=== PATIENT | female | born 1995 | race Hispanic/Latino ===

== ENCOUNTER → 2017-01-25 | Outpatient (CLI) | payer SELFPAY | LOC: LAB 11:15 | PROVIDERS: ATTEND Family Medicine | DX: O99.810 Abnormal glucose complicating pregnancy (principal); Z3A.00 Weeks of gestation of pregnancy not specified | CPT/HCPCS: 36415; 82951; 82952; 82962 ==

== ENCOUNTER → 2017-02-15 | Outpatient (CLI) | payer OTHER ==
[~2017-02-15] MED LIST: FERR-74 PO; HYDR-3812 PO; IBUP-1773 PO; PREN1TAB86 PO
--- NOTE | 2017-02-15 16:13 | Diagnostic Imaging Report ---
INDICATION: survey. TECHNIQUE: Multiple real-time grayscale images were obtained over the gravid uterus. COMPARISON: There are no prior studies available for comparison. FINDINGS: There is single live fetus in breech presentation. heart motion was noted and a rate of 135 BPM was recorded. There were no abnormalities identified but the spine and cord insertion were not well imaged. A short-term (2-4 week) followup exam should be considered for further evaluation. The placenta is fundal and there is no previa. The amniotic fluid index is 8.5 cm (normal 8 to 22 cm). The growth parameters average 34 weeks 1 day gestation +/-3 weeks. The cervix was identified and measures 4.7 cm in length. IMPRESSION: 1. There is a single live fetus at approximately 34 weeks 1 day gestation +/-3 weeks. The EDC is March 28, 2017. 2. There were no abnormalities identified but the spine and cord insertion were not optimally imaged. Considerations as above. 3. The amniotic fluid index is at the low end of normal. Biometrical measurements are as follows: Biparietal 8.52 cm, age 34 weeks 3 days. Head circumference 30.21 cm, age 33 weeks 4 days. Abdominal circumference 31.01 cm, age 35 weeks 0 days. Femur length 6.41 cm, age 33 weeks 1 days. Sonographic estimate age: 34 weeks 1 days. Sonographic estimated date of delivery: 03/28/2017. Estimated Weight: 2382 gm (+/- 348 gm). LMP percentile: N/A%. heart rate: 135 beats per minute. number: 1 of 1. Dictated by: Dictated on workstation # [id number]
== END ==
LOC: RAD 10:22
PROVIDERS: ATTEND Family Medicine
DX: Z36 Encounter for antenatal screening of mother (principal); Z3A.34 34 weeks gestation of pregnancy
CPT/HCPCS: 76805

== ENCOUNTER → 2017-03-22 | Outpatient (CLI) | payer OTHER ==
[~2017-03-22] MED LIST changes: -FERR-74 PO; -HYDR-3812 PO; -IBUP-1773 PO
--- NOTE | 2017-03-22 14:08 | Diagnostic Imaging Report ---
INDICATION: position. TECHNIQUE: Multiple real-time grayscale images were obtained over the gravid uterus. COMPARISON: 02/15/2017. FINDINGS: heart rate is 142 beats per minute. position is breech. The placenta is fundal. No placenta previa. There is oligohydramnios with KIRBY of 4.9. This compares to 8.5 on 02/15/2017. Biometrical measurements are as follows: Biparietal 9.04 cm, age 36 weeks 5 days, at the 19th percentile. Head circumference 33.27 cm, age 38 weeks 0 days, at 15th percentile. Abdominal circumference 35.32 cm, age 39 weeks 2 days, at 75th percentile. Femur length 6.94 cm, age 35 weeks 5 days, at less than 2nd percentile. Sonographic estimate age: 37 weeks 3 days. Sonographic estimated date of delivery: 04-09-17. Estimated Weight: 3359 gm (+/- 491 gm). LMP percentile: 41%. heart rate: 142 beats per minute. number: 1 of 1. IMPRESSION: Live intrauterine in breech position. Oligohydramnios. Dictated by: Dictated on workstation # [id number]
== END ==
LOC: RAD 12:25
PROVIDERS: ATTEND Family Medicine
DX: Z36.87 Encounter for antenatal screening for uncertain dates (principal); Z3A.37 37 weeks gestation of pregnancy
CPT/HCPCS: 76816

== ENCOUNTER 2017-03-24 11:50 | Inpatient (IN) | payer OTHER ==
[~2017-03-24] VITALS: Ht 152.4 cm; Wt 63.5 kg
[2017-03-24] MEDS ORDERED: D5 LR IV SOLUTION 1,000 ML IV SCH (12:13)
[2017-03-24] MEDS ORDERED: FAMOTIDINE 20MG/2ML IV (PEPCID) IV ONE (12:15)
[2017-03-24] MEDS ORDERED: METOCLOPRAMIDE INJ 10 MG/2 ML (REGLAN) IV ONE (12:15)
[2017-03-24] MEDS ORDERED: CITRIC ACID/SOB CIT (BICITRA) 30 ML UDC PO ONE (12:15)
--- NOTE | 2017-03-24 12:31 | History & Physical-OB ---
OB - Chief Complaint & HPI Date/Time Date of Admission: Date of Admission: Mar 24, 2017 at 11:50 Time Seen by Provider: 12:45 Chief Complaint/History OB-Reason for Admission/Chief: Section Hx : 2 Hx Para: 1 Gestational Age in Weeks: 39 Gestational Age in Days: 4 Indication for : malpresentation, other (oligohydramnios) History of Labs O +/- Other Constuled by Dr. Stevenson due to breech presentation. at 39 4/7 weeks by LMP. Sent for sono at 34 weeks due to decreased movement. Breech at that time with KIRBY 8. Sent again on 03/22/17 as could not determine presenting part and breech with KIRBY of 4. Attempted to contact patient but unable to inform her until this am. She has now arrived in labor and delivery for primary section. Unable to offer version due to KIRBY. Late care at 28 weeks. + Chlamydia and trichomonos and treated. Allergies and Home Medications Allergies Coded Allergies: No Known Drug Allergies (Unverified , 03/24/17) OB - History Hx of Present Care: Yes (late) Ultrasounds: Abnormal US findings (see above) Obstetrical Complications: Other (oligohydramnios) Medical Complications: Genitourinary (chlamydia and trichomonas) Information Induced Hypertension: No Maternal Gestational Diabetes: No (had abnormal 1 hour but normal 3 hour) Hemorrhage: No Obstetrical History Hx : 2 Hx Para: 1 Hx # Term Pregnancies: 1 Hx Termination: No Patient Past Medical History NC Social History/Family History HIV/AIDS: No Recent Infectious Disease Expo: No Sexually Transmitted Disease: Yes (chlamydia and trichomonas this ) Alcohol Use: Denies Use Recreational Drug Use: No Smoking Cessation: Never smoker Immunizations Rubella: immune RPR/VDRL: Negative GBS Status: Negative HBsAG: Negative OB - Admission Exam Physical Exam Vitals: see RN note Heart: Rhythm Normal Lungs: Clear, Equal Abdomen: Gravid Extremities: Normal Reflexes: Normal Cervical Dilatation: 3cm (per Dr. Stevenson) Membranes: Intact Heart Rate: 140's Accelerations: Accelerations Present Decelerations: No Decelerations Short Term Variability: Present Greenskeeper Variability: Average (6-25) Contractions on Admission: >10 Minutes Apart Labs Laboratory Tests Test 03/24/17 12:28 03/24/17 12:45 Range/Units White Blood Count 7.4 4.3-11.0 10^3/uL Red Blood Count 4.05 L 4.35-5.85 10^6/uL Hemoglobin 9.0 L 11.5-16.0 G/DL Hematocrit 30 L 35-52 % Mean Corpuscular Volume 74 L 80-99 FL Mean Corpuscular Hemoglobin 22 L 25-34 PG Mean Corpuscular Hemoglobin Concent 30 L 32-36 G/DL Red Cell Distribution Width 17.5 H 10.0-14.5 % Platelet Count 314 130-400 10^3/uL Mean Platelet Volume 10.6 H 7.4-10.4 FL Neutrophils (%) (Auto) 68 42-75 % Lymphocytes (%) (Auto) 26 12-44 % Monocytes (%) (Auto) 6 0-12 % Eosinophils (%) (Auto) 0 0-10 % Basophils (%) (Auto) 0 0-10 % Neutrophils # (Auto) 5.0 1.8-7.8 X 10^3 Lymphocytes # (Auto) 1.9 1.0-4.0 X 10^3 Monocytes # (Auto) 0.5 0.0-1.0 X 10^3 Eosinophils # (Auto) 0.0 0.0-0.3 10^3/uL Basophils # (Auto) 0.0 0.0-0.1 10^3/uL OB - Assessment/Plan/Diagnosis Assessment Assessment: section, other (Breech presentation, oligyhydramnios) Plan Other Plan status is reassuring though she has had 1 variable deceleration Plan to proceed with primary section today. also antepartum anemia (Hgb 9). T&S. do not anticipate excessive blood loss but will prepare for transfusion as necessary Ancef 1 gram and Zithromax 500 mg given preop( due to history of chlamydia this ) risks bleeding, infection, injury to bowel, bladder and ureter explained and consent was obtained. Dariana _ STEVE Brandt DO Mar 24, 2017 12:31
[2017-03-24 12:41] LABS: BASOPHILS % (AUTO) 0 % (0-10); EOSINOPHILS % (AUTO) 0 % (0-10); LYMPHOCYTES # (AUTO) 1.9 X 10^3 (1.0-4.0); LYMPHOCYTES % (AUTO) 26 % (12-44); MEAN CORPUSCULAR HEMOGLOBIN 22 PG (25-34); MEAN CORPUSCULAR HGB CONC 30 G/DL (32-36); MEAN CORPUSCULAR VOLUME 74 FL (80-99); MEAN PLATELET VOLUME 10.6 FL (7.4-10.4); MONOCYTES # (AUTO) 0.5 X 10^3 (0.0-1.0); MONOCYTES % (AUTO) 6 % (0-12); NEUTROPHILS % (AUTO) 68 % (42-75); PLATELET COUNT 314 10^3/uL (130-400); RED BLOOD COUNT 4.05 10^6/uL (4.35-5.85); RED CELL DISTRIBUTION WIDTH 17.5 % (10.0-14.5); WHITE BLOOD COUNT 7.4 10^3/uL (4.3-11.0)
[2017-03-24] MEDS ORDERED: AZITHROMYCIN 500 MG (ZITHROMAX) VIAL ONE (12:54)
[2017-03-24] MEDS ORDERED: NS (IVPB) 250 ML ONE (12:55)
[2017-03-24] MEDS ORDERED: fentaNYL INJECTION 100 MCG/2 ML AMP ONE (12:56)
[2017-03-24] MEDS: LACTATED RINGERS 1,000 ML IV PRN ×2 (12:56→13:25)
[2017-03-24] MEDS ORDERED: OXYTOCIN/NORMAL SALINE 1,000 ML IV ONE (12:56)
[2017-03-24] MEDS ORDERED: AZITHROMYCIN INJECTION 500 MG in NS (IVPB) 250 ML IV ONE (13:00)
[2017-03-24] MEDS ORDERED: ceFAZolin INJECTION 1,000 MG in NS (IVPB) 50 ML IV ONE (13:00)
[2017-03-24 13:14] LABS: BILIRUBIN,URINE NEGATIVE (NEGATIVE); KETONES,URINE NEGATIVE (NEGATIVE); LEUKOCYTE ESTERASE ,URINE 2+ (NEGATIVE); NITRITE,URINE NEGATIVE (NEGATIVE); PH,URINE 7 (5-9); PROTEIN,URINE NEGATIVE (NEGATIVE); UROBILINOGEN,URINE NORMAL (NORMAL)
[2017-03-24] MEDS ORDERED: PREN1TAB86 PO (13:23)
[2017-03-24 13:27] LABS: WBC,URINE 25-50 /HPF
[2017-03-24] MEDS ORDERED: PHENYLEPHRINE 100 MCG/ML 10 ML (ANESTHESIA) SYR ONE (14:14)
--- NOTE | 2017-03-24 14:22 | Cesarean Section Operative ---
Procedure Procedure Note Pre-operative Diagnosis: Eliane Cortes is a (21 /Para 2 / 1, Gestational Age (wks)39 with [] Post-operative Diagnosis: same [] Procedure: [] low transverse section Physician: STEVE SALES Paralegals: [] Estimated blood loss: [] mL Disposition: [] Findings: Viable [] , Apgars [], weight [], intact placenta, 3vc, normal appearing uterus, tubes, and ovaries. Indications:Eliane Cortes is bryan (21 /Para 2 / 1,Gestational Age ( wks)39 presenting for []. Procedure Details: The patient was seen in pre-op and the procedure was discussed with the patient in full, including the risks, benefits, and alternatives. All questions were answered. The patient was taken to the operating room and a time out was performed, verifying patient and procedure. After spinal anesthesia was placed by our anesthesia colleagues, the patient was placed in the dorsal supine with leftward tilt for uterine displacement.~ Her abdomen was then prepped and draped in the typical sterile fashion. A Pfannenstiel skin incision was made using a scalpel and carried down through the underlying fascia. The fascia was incised in the midline and tented up using Michael clamps. On both the inferior and superior fascia side the rectus muscle was dissected off bluntly and sharply using Carmen scissors. The peritoneum was identified and entered bluntly in the midline. This was then stretched laterally using manual strength. After entering the abdominal cavity and confirming lack of intraperitoneal adhesions, a large Alphonse retractor was placed and the lower uterine segment was visualized. A bladder flap was created with the use of Metzenbaum scissors.~ A scalpel was utilized to make a low transverse uterine incision. Amniotomy was performed with an Allis clamp with return of clear fluid. The infant's head was grasped and brought to the level of the incision. Fundal pressure was applied and was delivered without difficulty. Mouth and nares were suctioned with bulb suction. After the umbilical cord was clamped and cut, the was handed off to the pediatric staff. A sample of cord blood was then obtained. The placenta was delivered intact via uterine massage. The uterus was exteriorized and cleared of all clots and debris. The uterine incision was closed using 0 Vicryl in a running locked fashion. A second imbricated layer was placed using 0 Vicryl in a running fashion as well. The uterus was flexed forward and the posterior rectouterine space was inspected and cleared of all clots and debris. Again the hysterotomy site was examined and hemostasis was observed. The bilateral tubes and ovaries appeared normal. The uterus was placed back into the abdominal cavity and abdominal gutters were cleared of all clots and debris. A final check of the uterine incision showed it to be hemostatic. The peritoneum was closed using 3-0 Vicryl in a running fashion. The fascia was closed with 0 Vicryl in a running fashion. The subcutaneous space was hemostatic, and irrigated. The subcutaneous space was closed with 3-0 Vicryl in several single interrupted stitches. The skin was then closed using 4- 0 Monocryl in a running subcuticular fashion. The skin edges were reapproximated together and were hemostatic. A pressure dressing was applied. All sponge, lap and needle counts were correct at the end of the procedure per nursing. Vitals - Labs Vital Signs - I&O I & O 03/25/17 07:00 Intake Total 1050 ml Balance 1050 ml Labs Laboratory Tests 03/24/17 12:28: White Blood Count 7.4, Red Blood Count 4.05L, Hemoglobin 9.0L, Hematocrit 30L, Mean Corpuscular Volume 74L, Mean Corpuscular Hemoglobin 22L, Mean Corpuscular Hemoglobin Concent 30L, Red Cell Distribution Width 17.5H, Platelet Count 314, Mean Platelet Volume 10.6H, Neutrophils (%) (Auto) 68, Lymphocytes (%) (Auto) 26 , Monocytes (%) (Auto) 6, Eosinophils (%) (Auto) 0, Basophils (%) (Auto) 0, Neutrophils # (Auto) 5.0, Lymphocytes # (Auto) 1.9, Monocytes # (Auto) 0.5, Eosinophils # (Auto) 0.0, Basophils # (Auto) 0.0 03/24/17 12:45: Urine Color YELLOW, Urine Clarity SLIGHTLY CLOUDY, Urine pH 7, Urine Specific [place] 1.010L, Urine Protein NEGATIVE, Urine Glucose (UA) NEGATIVE, Urine Ketones NEGATIVE, Urine Nitrite NEGATIVE, Urine Bilirubin NEGATIVE, Urine Urobilinogen NORMAL, Urine Leukocyte Esterase 2+H, Urine RBC (Auto) NEGATIVE, Urine RBC NONE, Urine WBC 25-50H, Urine Squamous Epithelial Cells 10-25H, Urine Crystals NONE, Urine Bacteria TRACE, Urine Casts NONE, Urine Mucus SMALLH, Urine Culture Indicated YES STEVE SALES DO Mar 24, 2017 14:22
[2017-03-24 17:35] VITALS: BP 118/78
[2017-03-24] MEDS ORDERED: OXYTOCIN/NORMAL SALINE 500 ML IV SCH (19:25)
[2017-03-24] MEDS ORDERED: TETANUS,DIPTH,PERTUSS P/F (BOOSTRIX) 0.5 ML VIAL IM SCH (19:30)
[2017-03-24] MEDS ORDERED: MEASLES,MUMPS,RUBELLA 1 EA INJ SC SCH (19:30)
[2017-03-24] MEDS ORDERED: HYDROmorphone (DILAUDID) 2 MG/ML VIAL IVP PRN (19:30)
[2017-03-24] MEDS ORDERED: HYDROcodone/APAP 5 MG/325 MG (LORTAB) TAB PO PRN (19:30)
[2017-03-24 21:23] VITALS: BP 121/67
[2017-03-24] MEDS: DOCUSATE SODIUM 100 MG (COLACE) CAP PO SCH (21:23)
[2017-03-24] MEDS: KETOROLAC 30 MG/ML VIAL IVP SCH (21:23)
[2017-03-24] MEDS ORDERED: CATHETER FLUSH 10 ML SYR IV SCH (22:00)
[2017-03-25 00:30] VITALS: BP 98/57
[2017-03-25 05:10] VITALS: BP 102/59
[2017-03-25 06:34] LABS: BASOPHILS % (AUTO) 0 % (0-10); EOSINOPHILS % (AUTO) 0 % (0-10); LYMPHOCYTES # (AUTO) 2.2 X 10^3 (1.0-4.0); LYMPHOCYTES % (AUTO) 20 % (12-44); MEAN CORPUSCULAR HEMOGLOBIN 22 PG (25-34); MEAN CORPUSCULAR HGB CONC 30 G/DL (32-36); MEAN CORPUSCULAR VOLUME 74 FL (80-99); MEAN PLATELET VOLUME 9.9 FL (7.4-10.4); MONOCYTES # (AUTO) 0.8 X 10^3 (0.0-1.0); MONOCYTES % (AUTO) 7 % (0-12); NEUTROPHILS # (AUTO) 8.1 X 10^3 (1.8-7.8); NEUTROPHILS % (AUTO) 73 % (42-75); PLATELET COUNT 246 10^3/uL (130-400); RED BLOOD COUNT 3.16 10^6/uL (4.35-5.85); RED CELL DISTRIBUTION WIDTH 17.2 % (10.0-14.5); WHITE BLOOD COUNT 11.1 10^3/uL (4.3-11.0)
[2017-03-25 08:10] VITALS: BP 105/60
[2017-03-25] MEDS: DOCUSATE SODIUM 100 MG (COLACE) CAP PO SCH ×2 (08:37→22:38)
[2017-03-25] MEDS: KETOROLAC 30 MG/ML VIAL IVP SCH ×2 (08:38→19:39)
[2017-03-25 12:00] VITALS: BP 100/62
--- NOTE | 2017-03-25 16:30 | Anesthesia-Regional Post-Op ---
Regional Patient Condition Mental Status: Alert, Oriented x3 Circulation: Same as Pre-Op Headache: Absent Sensation: Full Recovery Motor Block: Absent Post Op Complications Complications None Follow Up Care/Instructions Patient Instructions None needed. Anesthesia/Patient Condition Patient is doing well, no complaints, stable vital signs, no apparent adverse anesthesia problems. No complications reported per nursing. ANJALI GARCIA CRNA Mar 25, 2017 16:30
--- NOTE | 2017-03-25 16:35 | Postpartum Progress Note ---
Post Op Post-operative Day #1 s/p PLTCS, Breech/oligohydramnios Subjective: Patient is without complaints. Ambulating, voiding after mata removed. Tolerating a regular diet without nausea or vomiting. Normal lochia. Pain is well controlled with oral pain medications. Passing flatus. Objective: Vital Sign - Last 12Hours 03/25/17 03/25/17 03/25/17 05:10 08:10 12:00 Temp 98.9 99.1 99.1 Pulse 77 82 91 Resp 18 18 18 B/P (MAP) 102/59 105/60 100/62 Pulse Ox 98 97 98 O2 Delivery Room Air Room Air Room Air Laboratory Tests Test 03/25/17 06:25 Range/Units White Blood Count 11.1 H 4.3-11.0 10^3/uL Red Blood Count 3.16 L 4.35-5.85 10^6/uL Hemoglobin 7.0 L 11.5-16.0 G/DL Hematocrit 24 L 35-52 % Mean Corpuscular Volume 74 L 80-99 FL Mean Corpuscular Hemoglobin 22 L 25-34 PG Mean Corpuscular Hemoglobin Concent 30 L 32-36 G/DL Red Cell Distribution Width 17.2 H 10.0-14.5 % Platelet Count 246 130-400 10^3/uL Mean Platelet Volume 9.9 7.4-10.4 FL Neutrophils (%) (Auto) 73 42-75 % Lymphocytes (%) (Auto) 20 12-44 % Monocytes (%) (Auto) 7 0-12 % Eosinophils (%) (Auto) 0 0-10 % Basophils (%) (Auto) 0 0-10 % Neutrophils # (Auto) 8.1 H 1.8-7.8 X 10^3 Lymphocytes # (Auto) 2.2 1.0-4.0 X 10^3 Monocytes # (Auto) 0.8 0.0-1.0 X 10^3 Eosinophils # (Auto) 0.0 0.0-0.3 10^3/uL Basophils # (Auto) 0.0 0.0-0.1 10^3/uL Intake and Output 03/25/17 23:59 Intake Total 800 ml Output Total 1100 ml Balance -300 ml Intake Oral 800 ml Output Urine Total 1100 ml Physical Exam: General - Alert and oriented, no apparent distress Abdomen - Soft, appropriately tender to palpation, non-distended, fundus firm at umbilicus Incision - clean, dry and intact; no erythema or induration, no drainage Extremities - no edema, negative Jonathan's bilaterally Assessment: 1. post-operative day # 1, status post pLTCS. Recovering well, hemodynamically stable 2. Acute blood loss anemia, antepartum iron deficiency anemia Plan: Routine post-operative care. Encourage breast feeding. Encourage ambulation. VTE prophylaxis: SCDs. Ferrous sulfate supplementation. Plan for discharge Vitals - Labs Vital Signs - I&O Vital Signs Date Time Temp Pulse Resp B/P (MAP) Pulse Ox O2 Delivery O2 Flow Rate FiO2 03/25/17 12:00 99.1 91 18 100/62 98 Room Air 03/25/17 08:10 99.1 82 18 105/60 97 Room Air 03/25/17 05:10 98.9 77 18 102/59 98 Room Air 03/25/17 00:30 98.9 74 18 98/57 98 Room Air 03/24/17 21:23 99.8 81 20 121/67 97 Room Air 03/24/17 17:35 98.6 99 20 118/78 Room Air Labs Laboratory Tests 03/25/17 06:25: White Blood Count 11.1H, Red Blood Count 3.16L, Hemoglobin 7.0L, Hematocrit 24L , Mean Corpuscular Volume 74L, Mean Corpuscular Hemoglobin 22L, Mean Corpuscular Hemoglobin Concent 30L, Red Cell Distribution Width 17.2H, Platelet Count 246, Mean Platelet Volume 9.9, Neutrophils (%) (Auto) 73, Lymphocytes (%) (Auto) 20, Monocytes (%) (Auto) 7, Eosinophils (%) (Auto) 0, Basophils (%) (Auto ) 0, Neutrophils # (Auto) 8.1H, Lymphocytes # (Auto) 2.2, Monocytes # (Auto) 0.8 , Eosinophils # (Auto) 0.0, Basophils # (Auto) 0.0 Microbiology 03/24/17 Urine Culture - Preliminary, Resulted NO GROWTH STEVE SALES DO Mar 25, 2017 16:35
[2017-03-25 16:50] VITALS: BP 110/73
[2017-03-25] MEDS: IBUPROFEN 600 MG (MOTRIN) TAB PO SCH ×2 (17:33→22:38)
[2017-03-25] MEDS ORDERED: FERROUS SULF 325 MG (IRON) TAB PO ONE (22:29)
[2017-03-25 22:38] VITALS: BP 109/57
[2017-03-25] MEDS: FERROUS SULF 325 MG (IRON) TAB PO SCH (22:39)
[2017-03-26 04:55] VITALS: BP 102/56
[2017-03-26] MEDS: IBUPROFEN 600 MG (MOTRIN) TAB PO SCH ×3 (04:55→14:49)
[2017-03-26 09:40] VITALS: BP 105/63
[2017-03-26] MEDS: FERROUS SULF 325 MG (IRON) TAB PO SCH (09:40)
[2017-03-26] MEDS: DOCUSATE SODIUM 100 MG (COLACE) CAP PO SCH (09:59)
--- NOTE | 2017-03-26 13:12 | Progress Note-Standard ---
Standard Progress Note Progress Notes/Assess & Plan Date Seen by Provider: Mar 26, 2017 Time Seen by Provider: 12:15 Progress/Assessment & Plan Vital Sign - Last 12Hours 03/26/17 03/26/17 04:55 09:40 Temp 96.7 97.4 Pulse 68 77 Resp 18 20 B/P (MAP) 102/56 105/63 Pulse Ox 99 O2 Delivery Room Air Room Air STEVE SALES DO Mar 26, 2017 13:12
--- NOTE | 2017-03-26 13:13 | Discharge Summary ---
Diagnosis/Chief Complaint Date of Admission Mar 24, 2017 at 11:50 Date of Discharge 03/26/17 Discharge Date: Mar 26, 2017 Discharge Summary Hospital Course Labs Laboratory Tests 03/24/17 12:28: Red Blood Count 4.05L, Hemoglobin 9.0L, Hematocrit 30L, Mean Corpuscular Volume 74L, Mean Corpuscular Hemoglobin 22L, Mean Corpuscular Hemoglobin Concent 30L, Red Cell Distribution Width 17.5H, Mean Platelet Volume 10.6H 03/24/17 12:45: Urine Specific [place] 1.010L, Urine Leukocyte Esterase 2+H, Urine WBC 25-50H, Urine Squamous Epithelial Cells 10-25H, Urine Mucus SMALLH 03/25/17 06:25: Red Blood Count 3.16L, Hemoglobin 7.0L, Hematocrit 24L, Mean Corpuscular Volume 74L, Mean Corpuscular Hemoglobin 22L, Mean Corpuscular Hemoglobin Concent 30L, Red Cell Distribution Width 17.2H, White Blood Count 11.1H, Neutrophils # (Auto ) 8.1H Procedures None. Discharge Physical Examination Allergies: Coded Allergies: No Known Drug Allergies (Unverified , 03/24/17) Vitals & I&Os Vital Signs Date Time Temp Pulse Resp B/P (MAP) Pulse Ox O2 Delivery O2 Flow Rate FiO2 03/26/17 09:40 97.4 77 20 105/63 Room Air 03/26/17 04:55 99 Discharge Home Medications Reviewed and agree with Discharge Medication list on patient's Discharge Instruction sheet Instructions to Patient/Family Please see electronic discharge instructions given to patient. Clinical Quality Measures DVT/VTE Risk/Contraindication: Risk Factor Score Per Nursin RFS Level Per Nursing on Admit: 1=Low/No VTE PPX STEVE SALES DO Mar 26, 2017 13:13
[2017-03-26] MEDS ORDERED: FERR-74 PO (13:14)
[2017-03-26] MEDS ORDERED: HYDR-3812 PO (13:14)
[2017-03-26] MEDS ORDERED: IBUP-1773 PO (13:14)
--- NOTE | 2017-03-26 13:17 | Discharge Inst-Women's Service ---
Discharge Inst-Women's Serv Depart Medication/Instructions New, Converted or Re-Newed RX: RX on Chart Final Diagnosis breech presentation oligohydramnios antepartum iron def anemia acute blood loss anemia primary section Consults/Follow Up Additional Follow Up: Yes ([address] Duran/Holli Muñiz for incision check ( call tomorrow [phone]); [address] Stevenson/[facility]) Activity Activity: Activity as Tolerated (no lifting over 25 lbs) Driving Instructions: No Driving for 1 Week NO SMOKING: NO SMOKING Nothing Inside Vagina: No Douching, No [place], No Tampons Diet Discharge Diet: No Restrictions Symptoms to Report to : Swelling Increased, Pain Increased, Fever Over 101 Degrees F, Vaginal Bleeding Increase, Cramps in Feet or Legs, Pain/Pressure in Shoulder, Vaginal Discharge Foul For Any Problems or Questions: Contact Your Physician Skin/Wound Care Infection Signs and Symptoms: Increased Redness, Foul Odor of Wound, Increased Drainage, Skin Itchy or Has a Rash, Increased Swelling, Temperature Above 101 F Operative Area Clean and Dry: Keep Incision Clean/Dry Stitches/[place]/Dermabond: Dermabond Bathing Instructions: STEVE Healy DO Mar 26, 2017 13:17
== END 2017-03-26 15:35 | disposition home or self-care (01) | DRG 765 ==
LOC: LDRP 11:50
PROVIDERS: ADMIT Obstetrics & Gynecology; ATTEND Obstetrics & Gynecology
PROC: 10D00Z1 Extraction of Products of Conception, Low, Open Approach (ICD-10-PCS; principal; 2017-03-24 13:14)
DX: O64.1XX0 Obstructed labor due to breech presentation, not applicable or unspecified (principal); O41.03X0 Oligohydramnios, third trimester, not applicable or unspecified; O99.02 Anemia complicating childbirth; D50.9 Iron deficiency anemia, unspecified; O90.81 Anemia of the puerperium; D62 Acute posthemorrhagic anemia; Z37.0 Single live birth; Z3A.39 39 weeks gestation of pregnancy
CPT/HCPCS: 36415; 81000; 85025; 86850; 86900; 86901; 87088